=== PATIENT | female | born 1950 | race Caucasian/White ===

== ENCOUNTER 2018-08-20 02:45 | Emergency (ER) | payer OTHER ==
[~2018-08-20] VITALS: Ht 172.7 cm; Wt 68.0 kg
[~2018-08-20 02:45] MED LIST: COMPAZINE5 MG PO; PRENATAL; ZOCOR 20 MG TAB20 M1 PO
[2018-08-20] MEDS ORDERED: LIPITOR10 MG PO (03:39)
[2018-08-20] MEDS ORDERED: IBUPROFEN 200200 M1 (03:39)
[2018-08-20] MEDS ORDERED: NORVASC5 MG PO (03:39)
[2018-08-20] MEDS ORDERED: VALIUM2 MG PO (04:00)
[2018-08-20] MEDS ORDERED: MOBIC15 MG PO (04:00)
[2018-08-20 04:18] VITALS: BP 114/66
== END 2018-08-20 04:21 | disposition home or self-care (01) ==
LOC: ER 02:45
DX: S16.1XXA Strain of muscle, fascia and tendon at neck level, initial encounter (principal); G44.209 Tension-type headache, unspecified, not intractable; E78.00 Pure hypercholesterolemia, unspecified; F17.210 Nicotine dependence, cigarettes, uncomplicated; X58.XXXA Exposure to other specified factors, initial encounter; Y93.89 Activity, other specified; Y92.89 Other specified places as the place of occurrence of the external cause; Y99.8 Other external cause status

== ENCOUNTER 2019-10-30 18:07 | Emergency (ER) | payer OTHER ==
[~2019-10-30] VITALS: Ht 172.7 cm; Wt 72.6 kg
[~2019-10-30 18:07] MED LIST changes: +IBUPROFEN 200200 M1; +LIPITOR10 MG PO; +MOBIC15 MG PO; +NORVASC5 MG PO; +VALIUM2 MG PO
[2019-10-30 19:14] LABS: ABSOLUTE NEUTROPHILS 4.1 thou/uL (1.4-8.2); EOSINOPHILS 4.5 % (0.0-3.0); HEMATOCRIT 42.9 % (37.0-47.0); LYMPHOCYTES 29.5 % (24.0-44.0); MCH 29.3 pg (26.0-34.0); MCHC 32.7 g/dL (28.0-37.0); MCV 89.7 fL (80.0-100.0); MONOCYTES 7.7 % (1.0-8.0); PLATELET COUNT 187 thou/uL (150-400); POLYS 57.3 % (36.0-66.0); RBC 4.78 mil/uL (4.20-5.00); RDW 14.5 % (10.5-14.5); WBC 7.1 thou/uL (4.0-11.0)
[2019-10-30 19:22] LABS: ANION GAP 6 mmol/L (7-16); BUN 19 mg/dL (7-18); CALCIUM 9.3 mg/dL (8.5-10.1); CHLORIDE 102 mmol/L (98-107); CO2 29 mmol/L (21-32); CREATININE 1.1 mg/dL (0.6-1.0); GLUCOSE 116 mg/dL (74-106); SODIUM 137 mmol/L (136-145)
[2019-10-30 19:33] LABS: ALBUMIN 3.5 g/dL (3.4-5.0); LIPASE 178 U/L (73-393); SGOT 23 U/L (15-37); SGPT 24 U/L (30-65); TOTAL BILIRUBIN 0.3 mg/dL (0.2-1.0); TOTAL PROTEIN 7.3 g/dL (6.4-8.2); TROPONIN-I <0.06 ng/mL (<0.06)
[2019-10-30 22:17] VITALS: BP 117/66
--- NOTE | 2019-10-31 07:46 | EKG ---
[facility] [place] [address] ELECTROCARDIOGRAM REPORT Name: KERRI CORNEJO Room #: [facility]#: [id number] Admission: 10/30/19 Attend Phys: Discharge: 10/30/19 Date of : 54 Report #: [id number] THIS REPORT FOR: cc: PRICE - Rosy family physician/PCP PRICE - Rosy family physician/PCP Allen Law MD [facility] THIS REPORT FOR: //name// [facility] ED Test Date: 2019-10-30 Test Time: 18:05:14 Pat Name: KERRI CORNEJO Department: Room: Gender: F Title Inspector: [facility] : 1950 Requested By: Julien Campbell Order Number: [id number] MD: Allen Law Measurements Intervals [place] Rate: 72 P: 51 IN: 161 QRS: 73 QRSD: 107 T: 68 QT: 391 QTc: 428 Interpretive Statements Sinus rhythm Normal tracing Compared to ECG 09/13/2009 14:18:15 No significant changes Electronically Signed On 10-31-2019 7:46:38 CDT by Allen Law [email or web address] <ELECTRONICALLY SIGNED> By: Allen Law MD, FAC 10/31/19 0746 180 04 Allen Law MD, [facility] /EPI
== END 2019-10-30 22:18 | disposition home or self-care (01) ==
LOC: ER 18:07
PROVIDERS: Emergency Medicine
DX: R07.89 Other chest pain (principal); E78.5 Hyperlipidemia, unspecified; J44.9 Chronic obstructive pulmonary disease, unspecified; F17.210 Nicotine dependence, cigarettes, uncomplicated; Z79.899 Other long term (current) drug therapy

== ENCOUNTER 2021-01-31 06:52 | Emergency (ER) | payer OTHER ==
[~2021-01-31] VITALS: Ht 172.7 cm; Wt 72.6 kg
[2021-01-31] MEDS ORDERED: ASA81BEC PO (07:10)
[2021-01-31] MEDS ORDERED: ROSUVASTATIN CAL5 MG PO (07:10)
[2021-01-31] MEDS ORDERED: LISINOPRIL5 MG PO (07:11)
[2021-01-31] MEDS ORDERED: MELOXICAM15 MG PO (07:11)
[2021-01-31] MEDS ORDERED: NORCO5 PO (09:02)
[2021-01-31 10:20] VITALS: BP 125/67
== END 2021-01-31 10:25 | disposition home or self-care (01) ==
LOC: ER 06:52
DX: M25.562 Pain in left knee (principal); E78.00 Pure hypercholesterolemia, unspecified; F17.210 Nicotine dependence, cigarettes, uncomplicated; Z79.82 Long term (current) use of aspirin; Z79.899 Other long term (current) drug therapy; W18.30XA Fall on same level, unspecified, initial encounter; Y93.89 Activity, other specified; Y92.89 Other specified places as the place of occurrence of the external cause; Y99.8 Other external cause status

== ENCOUNTER 2021-02-08 17:49 | Emergency (ER) | payer OTHER ==
[~2021-02-08] VITALS: Ht 172.7 cm; Wt 74.8 kg
[~2021-02-08 17:49] MED LIST changes: +ASA81BEC PO; +LISINOPRIL5 MG PO; +MELOXICAM15 MG PO; +NORCO5 PO; +ROSUVASTATIN CAL5 MG PO
[2021-02-08 18:54] LABS: ABSOLUTE NEUTROPHILS 10.9 thou/uL (1.4-8.2); BASOPHILS 0.4 % (0.0-2.0); EOSINOPHILS 0.2 % (0.0-3.0); HEMATOCRIT 38.7 % (37.0-47.0); HEMOGLOBIN 13.2 gm/dL (12.0-15.0); LYMPHOCYTES 4.9 % (24.0-44.0); MCH 30.5 pg (26.0-34.0); MCHC 34.2 g/dL (28.0-37.0); MCV 89.3 fL (80.0-100.0); MONOCYTES 1.7 % (1.0-8.0); PLATELET COUNT 358 thou/uL (150-400); POLYS 92.8 % (36.0-66.0); RBC 4.33 mil/uL (4.20-5.00); RDW 13.8 % (10.5-14.5); WBC 11.8 thou/uL (4.0-11.0)
[2021-02-08 19:04] LABS: ANION GAP 11 mmol/L (7-16); BUN 17 mg/dL (7-18); CALCIUM 9.2 mg/dL (8.5-10.1); CHLORIDE 103 mmol/L (98-107); CO2 22 mmol/L (21-32); GLUCOSE 136 mg/dL (74-106); POTASSIUM 4.1 mmol/L (3.5-5.1); SODIUM 136 mmol/L (136-145)
[2021-02-08 19:13] LABS: ALBUMIN 3.2 g/dL (3.4-5.0); SGOT 16 U/L (15-37); SGPT 18 U/L (14-59); TOTAL BILIRUBIN 0.3 mg/dL (0.2-1.0); TOTAL PROTEIN 7.9 g/dL (6.4-8.2)
[2021-02-08 21:17] VITALS: BP 140/76
== END 2021-02-08 21:25 | disposition home or self-care (01) ==
LOC: ER 17:49
PROVIDERS: Emergency Medicine
DX: M79.10 Myalgia, unspecified site (principal); Z20.822 Contact with and (suspected) exposure to COVID-19; E78.00 Pure hypercholesterolemia, unspecified; Z79.899 Other long term (current) drug therapy